=== PATIENT | female | born 1985 | race Caucasian/White ===

== ENCOUNTER → 2021-07-22 | Outpatient (CLI) | payer MEDICAID, OTHER ==
--- NOTE | 2021-07-22 14:47 | US ---
EXAMINATION TYPE: US pelvis complete transvag DATE OF EXAM: 07/22/2021 COMPARISON: NONE CLINICAL HISTORY: N94.6 DYSMENORRHEA, UNSPECIFIED. dysmenorrhea TECHNIQUE: Transvaginal (TV) and Transabdominal (TA) . Transabdominal sonographic images of the pel vis were acquired. Transvaginal sonographic images were medically necessary to better assess the fol lowing anatomy: uterus. ovaries Date of LMP: 2-3 weeks ago EXAM MEASUREMENTS: Uterus: 8.5 x 4.5 x 5.7 cm Endometrial Stripe: 1.0 cm Right Ovary: 2.9 x 1.9 x 2.2 cm Left Ovary: 3.2 x 2.1 x 2.2 cm 1. Uterus: Retroverted nabothian cysts 2. Endometrium: appears wnl 3. Right Ovary: follicles noted 4. Left Ovary: follicles noted 5. Bilateral Adnexa: wnl 6. Posterior cul-de-sac: wnl Slightly retroflexed uterus. Endometrial stripe within normal limits for secretory phase of menstrual cycle. No free fluid. Ovaries symmetric and normal in size. Scattered peripheral follicles. No suspicious extraovarian adne xal lesions. A few tiny superficial nabothian cysts marked in the cervix towards the end of study. IMPRESSION: No suspicious finding seen to account for patient's symptoms of dysmenorrhea.
== END | disposition home or self-care (01) ==
LOC: RADUSWWP 13:42
PROVIDERS: ATTEND Obstetrics & Gynecology
DX: N94.6 Dysmenorrhea, unspecified (principal)
CPT/HCPCS: 76830; 76856

== ENCOUNTER 2021-09-19 05:53 | Day surgery (SDC) | payer MEDICAID, OTHER ==
[2021-09-15 13:17] VITALS: BMI 34.3
--- NOTE | 2021-09-18 13:19 | P.HPOB ---
History of Present Illness H&P Date: 09/18/21 Chief Complaint: Family planning, menorrhagia This is a 36 y.o. female, 2, para 2, who presents for laparoscopic bilateral tubal ligation via fulgaration along with dilatation and curettage with hysteroscopy and Novasure endometrial ablation due to menorrhagia and dy smenorrhea. She complains of regular painful menses that are very heavy. Pelvic ultrasound showed uterus measuring 8.5 x 4.5 x 5.7 cm with endometrium measuring 1 cm. Ovaries are normal. She also desires tubal ligation for family planning. We did attempt IUD insert, however her cervix was too stenotic to insert. OB Hx: History of 2 vaginal deliveries. Loss Prevention Auditor Hx: No history of STDs Social Hx: . Works part-time as massage therapist. Review of Systems Constitutional: Denies chills, Denies fever Eyes: denies blurred vision, denies pain Ears, nose, mouth and throat: Denies headache, Denies sore throat Cardiovascular: Denies chest pain, Denies shortness of breath Respiratory: Denies cough Gastrointestinal: Denies abdominal pain, Denies diarrhea, Denies nausea, Denies vomiting Genitourinary: Reports dysmenorrhea, Reports menorrhagia, Reports urinary frequency Musculoskeletal: Denies myalgias Integumentary: Denies pruritus, Denies rash Neurological: Denies numbness, Denies weakness Psychiatric: Reports anxiety, Reports depression, Reports irritability Past Medical History Additional Past Medical History / Comment(s): History of Pre-Eclampsia. Seasonal allergies. History of Any Multi-Drug Resistant Organisms: None Reported Past Surgical History: No Surgical Hx Reported Past Anesthesia/Blood Transfusion Reactions: Motion Sickness Additional Past Anesthesia/Blood Transfusion Reaction / Comment(s): Has never had anesthesia. Past Psychological History: Anxiety, Depression Additional Psychological History / Comment(s): Lost . Smoking Status: Never smoker Past Alcohol Use History: Occasional Past Drug Use History: None Reported - Past Family History Mother Family Medical History: Hypertension Medications and Allergies Home Medications Medication Instructions Recorded Confirmed Type ALPRAZolam [Xanax] 0.125 - 0.25 mg PO TID PRN 09/15/21 09/19/21 History Cetirizine HCl/Pseudoephedrine 1 - 2 tab PO Q12H PRN 09/15/21 09/19/21 History [Zyrtec-D Tablet] buPROPion XL [Wellbutrin XL] 150 mg PO QAM 09/15/21 09/19/21 History Allergies Allergy/AdvReac Type Severity Reaction Status Date / Time No Known Allergies Allergy Verified 09/19/21 06:44 Exam Osteopathic Statement: *. No significant issues noted on an osteopathic structural exam other than those noted in the History and Physical/Consult. HEENT: within normal limits Heart: regular rate and rhythm Lungs: clear to auscultation bilaterally Abdomen: soft, non-tender Pelvic: uterus small, anteverted, non-tender, no adnexal masses or tenderness Extremities: negative Alpesh's Assessment and Plan (1) Family planning Current Visit: No Status: Acute Code(s): Z30.09 - ENCOUNTER FOR OT GENERAL CNSL AND ADVICE ON CONTRACEPTION SNOMED Code(s): 856293106 (2) Menorrhagia with regular cycle Current Visit: No Status: Acute Code(s): N92.0 - EXCESSIVE AND FREQUENT MENSTRUATION WITH REGULAR CYCLE SNOMED Code(s): 135333887 Plan: Proceed with laparoscopic bilateral tubal ligation via fulgaration and dilatation and curettage with hysteroscopy and Novasure endometrial ablation. I have discussed the risks, benefits, and alternative therapies for the above- mentioned procedure and for both sedation/anesthesia as well as necessary blood products administration, if indicated, as they pertain to this patient. The patient has indicated her understanding and acceptance of the risks and procedures discussed.
[~2021-09-19 05:53] MED LIST: DEXAMETHASONE SOD PHOSPHATE 4 MG/ML 1 ML VIAL IV ONE; HYDROmorphone 0.5 MG/0.5 ML SYRINGE IVP PRN; LACTATED RINGERS 1,000 ML IV SCH; LIDOCAINE 1% (10MG/ML) FOR IV START INTRADERMA PRN; ONDANSETRON 4 MG/2 ML VIAL IVP ONE; Pre Op ABX Message 1 EACH MISC MISCELLANE ONE; SCOPOLAMINE 1 MG/72 HR PATCH TRANSDERM ONE
[2021-09-19] MEDS ORDERED: MIDAZOLAM 2 MG/2 ML VIAL IVP ONE (07:08)
[2021-09-19] MEDS ORDERED: ROCURONIUM 10 MG/ML (5 ML VIAL) IV ONE (07:29)
[2021-09-19] MEDS ORDERED: SUCCINYLCHOLINE CHLORIDE 100 MG/5 ML SYR IV ONE (07:29)
[2021-09-19] MEDS ORDERED: ePHEDrine 50 MG/ML 1 ML VIAL ONE (07:29)
[2021-09-19] MEDS ORDERED: LIDOCAINE 2% INJ 20 MG/ML (2 ML VIAL) ONE (07:29)
[2021-09-19] MEDS ORDERED: KETOROLAC 15 MG/ML 1 ML VIAL ONE (07:29)
[2021-09-19] MEDS ORDERED: GLYCOPYRROLATE 0.2 MG/ML 2 ML VIAL ONE (07:29)
[2021-09-19] MEDS ORDERED: MIDAZOLAM 2 MG/2 ML VIAL ONE (07:29)
[2021-09-19] MEDS ORDERED: PROPOFOL 10 MG/ML 20 ML VIAL IV ONE (07:29)
[2021-09-19] MEDS ORDERED: NEOSTIGMINE 1 MG/ML 10 ML VIAL ONE (07:29)
[2021-09-19] MEDS ORDERED: HYDROmorphone (PF) 1 MG/ML ONE (07:29)
[2021-09-19] MEDS ORDERED: fentaNYL (PF) 50 MCG/ML 2 ML AMP ONE (07:29)
[2021-09-19] MEDS ORDERED: BUPIVACAINE (PF) 0.25% 30 ML VIAL SQ ONE ×2 (08:19→08:37)
--- NOTE | 2021-09-19 08:42 | P.OP ---
Date of Procedure: 09/19/21 Preoperative Diagnosis: Menorrhagia with regular cycle Dysmenorrhea Family planning Postoperative Diagnosis: Same Procedure(s) Performed: Dilation and curettage with hysteroscopy and NovaSure endometrial ablation Laparoscopic bilateral tubal ligation via fulguration Anesthesia: LIZETTE Surgeon: Colette Mcghee Estimated Blood Loss (ml): 10 Pathology: other (Endometrial curettings) Condition: stable Disposition: same day Indications for Procedure: This is a 36 y.o. female, 2, para 2, who presents for laparoscopic bilateral tubal ligation via fulgaration along with dilatation and curettage with hysteroscopy and Novasure endometrial ablation due to menorrhagia and dysmenorrhea. She complains of regular painful menses that are very heavy. Pelvic ultrasound showed uterus measuring 8.5 x 4.5 x 5.7 cm with endometrium measuring 1 cm. Ovaries are normal. She also desires tubal ligation for family planning. We did attempt IUD insert, however her cervix was too stenotic to insert. Operative Findings: Uterus is retroverted, sounded to 9 cm. Cervix is sounded to 3 cm. Upon hysteroscopy, fairly dyssynchronous endometrial pattern was noted. Both tubal ostia are visualized. On laparoscopy, normal uterus tubes and ovaries are noted. Gallbladder is visualized and appears slightly dilated. Description of Procedure: The patient is taken to the operating room. She is placed in the dorsal lithotomy position after general anesthesia was given. She is prepped and draped in the normal sterile fashion. Bladder is drained with a catheter and then removed. Pelvic exam is performed under anesthesia. Uterus is found to be retroverted with no adnexal masses. She is placed in slight Trendelenburg position. A right angle retractor is used to visualize the cervix. The anterior lip of the cervix is grasped with an Allis clamp. Cervix is sounded to 3 cm. Uterus is sounded to 9 cm. Cervix is gently dilated with Earl dilators until a hysteroscope could be passed. Hysteroscopy is performed using normal sa line. The above noted findings are noted. Next a polyp forceps is introduced. Minimal amount of tissue was obtained. Next medium-sized size sharp curette was placed. A minimal amount of endometrial curettings were obtained. Next NovaSure array was inserted into the endometrial cavity. Length was set at 6 cm and width was determined to be 4.6 cm. Next cavity assessment was completed and passed on the first try. Next NovaSure array was fired at 152 W for 49 seconds. Next the array was removed, inspected and then discarded. Next the hysteroscope was reinserted. Uniform charring was noted. Pictures were taken. Hysteroscope was removed. Allis clamp was removed from the anterior lip of the cervix. No bleeding was noted. All other instruments removed from the vagina. Sponge counts were correct. Patient is taken to recovery room in stable condition. Gloves were changed and attention was turned to the abdomen. A towel clip was placed on either side of the umbilicus. A small stab incision was made with a scalpel in the infraumbilical fold. A 5 mm disposable bladeless trocar was then inserted into the peritoneal cavity under direct visualization. After attempting to place the disposable 5 mm trocar, it was determined that she needed a long trocar. A longer 5 mm trocar was then placed under direct visualization. Once inside, pneumoperitoneum was achieved with CO2 gas. The insert was removed and the camera was placed. Intraperitoneal placement was confirmed. No bleeding was noted. Next the patient was placed in Trendelenburg position. A small stab incision was made suprapubically and a 5 mm disposable bladeless trocar was inserted into the peritoneal cavity under direct visualization. Once inside pelvic contents were inspected. Next a bipolar Kleppinger instrument was placed through the inferior trocar and the midportion of each tube was brought away from other structures and completely fulgurated on approximate 2-3 cm segment of each tube. Excellent hemostasis was noted. Pictures were taken. Pneumoperitoneum was released after the inferior trocar was removed under direct visualization. The upper trocar was then removed. The skin incisions were then closed with 4-0 Vicryl suture in a subcuticular fashion. One interrupted stitch was placed on the inferior incision for hemostasis. Incisions were then injected with quarter percent Marcaine. Approximately 8 mL were used. Next the kroner uterine manipulator was removed. No bleeding was noted. All sponge and needle counts are correct. The patient is then taken to recovery room in stable condition.
[2021-09-19 08:59] VITALS: TEMP 96.8
[2021-09-19] MEDS ORDERED: LACTATED RINGERS 1,000 ML IV ONE (09:36)
[2021-09-19] MEDS ORDERED: HYDROcodone/APAP 5-325MG 1 EACH TAB ONE (10:05)
[2021-09-19] MEDS ORDERED: HYDROcodone/APAP 5-325MG 1 EACH TAB PO ONE (10:06)
[2021-09-19 10:25] VITALS: RESP 20
[2021-09-19 12:01] VITALS: BP 121/83; PULSE 74
== END 2021-09-19 12:00 | disposition home or self-care (01) ==
LOC: OR 05:53
PROVIDERS: ATTEND Obstetrics & Gynecology
DX: Z30.2 Encounter for sterilization (principal); N92.0 Excessive and frequent menstruation with regular cycle; N94.6 Dysmenorrhea, unspecified; F41.9 Anxiety disorder, unspecified; F32.A Depression, unspecified; Z82.49 Family history of ischemic heart disease and other diseases of the circulatory system; Z79.899 Other long term (current) drug therapy; N88.2 Stricture and stenosis of cervix uteri
CPT/HCPCS: 81025; 88305; 58670; 58563; J2250; J1100; J2710; J2405; J3010; J1170 ×2; J1885; J0330; J2704; J2001

== ENCOUNTER → 2024-06-03 | Outpatient (CLI) | payer OTHER ==
--- NOTE | 2024-06-03 08:50 | MM ---
Reason for Exam: Screening (asymptomatic). Baseline mammogram. Patient History: Menarche at age 14. First Full-Term at age 23. Patient has history of breast feeding. Risk Values: Kristy 5 year model risk: 0.4%. NCI Lifetime model risk: 9.2%. Prior Study Comparison: Patient's first Mammogram. Tissue Density: The breasts are heterogeneously dense, which may obscure small masses. Findings: Analyzed By CAD. There is no suspicious group of microcalcifications or new suspicious mass in either breast. Overall Assessment: Negative, BI-RAD 1 Management: Screening Mammogram of both breasts in 1 year. . Patient should continue monthly self-breast exams. A clinical breast exam by your physician is recommended on an annual basis. This exam should not preclude additional follow-up of suspicious palpable abnormalities. Note on Kristy scores and lifetime risk: 1. A Kristy score greater than 3% is considered moderate risk. If this is the case, consider specialist referral to assess eligibility for a risk reducing agent. 2. If overall lifetime risk for the development of breast cancer is 20% or higher, the patient may qualify for future screening with alternating mammogram and breast MRI. [facility], , 06/03/2024 8:47 AM. Electronically signed and approved by: Josué Ventura M.D. [facility]
== END | disposition home or self-care (01) ==
LOC: RADMAMWWP 07:19
PROVIDERS: ATTEND Family Medicine
DX: Z12.31 Encounter for screening mammogram for malignant neoplasm of breast (principal); R92.333 Mammographic heterogeneous density, bilateral breasts
CPT/HCPCS: 77067